=== PATIENT | female | born 1975 | race Hispanic/Latino ===

== ENCOUNTER 2019-11-12 01:36 | Emergency (ER) | payer OTHER ==
[~2019-11-12] VITALS: Ht 152.4 cm; Wt 68.9 kg
--- OUTSIDE RECORDS SUMMARY | 2019-11-12 01:38 | XMS REPORT ---
Author Author [facility] t Organization [facility] Address [address] [place] [address] Phone Unavailable Care Team Providers Care Neonatal Intensive Care Nurse Name Role Phone Unavailable Unavailable Problems This patient has no known problems. Allergies, Adverse Reactions, Alerts This patient has no known allergies or adverse reactions. Medications This patient has no known medications. Procedures This patient has no known procedures. Encounters Start Date/Time End Date/Time Encounter Type Admission Type [facility] Care Department Encounter ID Source 2018-10-02 21:42:00 2018-10-02 21:42:00 Emergency E [facility]SE [id number] [facility]SE Results Test Description Test Time Test Comments Results Result Comments Source SCR MAMM BILATERAL ROMERO CAD DIGITAL 2019-09-06 16:14:00 - SCR MAMM BILATERAL ROMERO CAD DIGITALBILATERAL DIGITAL SCREENING MAMMOGRAM 3D/2D WITH CAD: 09/06/2019CLINICAL: Asymptomatic. Digital breast tomosynthesis was performed in addition to routine CC and MLO views. Current mammographic images were evaluated by either a [employer] M-Vu or a [employer] ImageChecker CAD (computer aided detection system). Comparison is made to exams dated 06/30/2018 mammogram, 018 mammogram, and 06/09/2016 mammogram - [facility]. There are scattered fibroglandular tissues in both breasts. No suspicious mass, architectural distortion, malignant type calcification, or lymph node abnormality detected. Breast architecture is stable compared to prior exams.IMPRESSION: NEGATIVEThere is no mammographic evidence of malignancy. Resume annual screening mammography in one year. Emily house/darion:09/06/2019 16:14:00 Survey Operations Director: Jenn HUBER, [facility] sent: BIRADS 1-2 Normal Mammogram BI-RADS: 1 Negative SCR MAMM BILATERAL ROMERO CAD DIGITAL 2018-06-30 16:29:39 - SCR MAMM BILATERAL ROMERO CAD DIGITALBILATERAL DIGITAL SCREENING MAMMOGRAM 3D/2D WITH CAD: 06/30/2018CLINICAL: Asymptomatic. Digital breast tomosynthesis was performed in addition to routine CC and MLO views. Current mammographic images were evaluated by either a [employer] M-Vu or a [employer] ImageChecker CAD (computer aided detection system). Comparison is made to exams dated 06/29/2017 mammogram, 05/22 mammogram, and 06/05/2015 mammogram - [facility]. There are scattered fibroglandular tissues in both breasts. No suspicious mass, architectural distortion, malignant type calcification, or lymph node abnormality detected. Breast architecture is stable compared to prior exams.IMPRESSION: NEGATIVEThere is no mammographic evidence of malignancy. Resume annual screening mammography in one year. Sanjuanita Burnett M.D. ar/penrad:06/30/2018 16:29:39 Survey Operations Director: Jenn Bryant , [facility] sent: BIRADS 1-2 Normal Mammogram BI-RADS: 1 Negative
--- OUTSIDE RECORDS SUMMARY | 2019-11-12 01:38 | XMS REPORT ---
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 Active Joe Loredo MD Special investigations and examinations - Gynecological examination Cervix, screening for malignant neoplasm V76.2 Active Joe Loredo MD Screening for malignant neoplasms of the cervix Hot flashes 627.2 Active Joe Loredo MD Symptomatic menopausal or female climacteric states Human papilloma virus test positive 795.05 Active Joe Loredo MD Cervical high risk human papillomavirus (HPV) DNA test positive Oligomenorrhea 626.1 Active Joe Loredo MD Scanty or infrequent menstruation Vaginal discharge 623.5 Active Joe Loredo MD Leukorrhea, not specified as infective Medication List Medication Instructions Start Date Stop Date Generic Name NDC Status Provider Patient Instruction No Drug Therapy Prescribed - none known did ask Danielle Carrillo MA Vital Signs Date Name Value Unit Range Description blood pressure, diastolic 70 mm[Hg] BP ball blood pressure, systolic 110 mm[Hg] BP sys pulse rate E&M 68 /min Heart rate respiratory rate E&M 16 /min Resp rate temperature E&M 98.0 [degF] Body temp erature weight E&M 148 [lb_av] Weight Measure d Diagnostic Results Date Name Value Unit Range Description Lab Report: NuSwab Vaginitis Plus (VG+) - Lab chlamydia DNA probe Negative Negative Lab Report: Nuab Vaginitis Plus (VG+) - Microbiology Neisseria gonorrhoeae DNA probe Negative Nega tive Office Visit: Annual / Female -- Room 6 - Chemistry beta HCG, urine, semiquantitative negative Lab Report: Sumayaab Vaginitis Plus (VG+) - Urinalysis trichomonas vaginalis, urine Negative Negativ e Lab Report: FSH, Serum, TSH Rfx on Abnor mal to Free T4 - Chemistry thyroid stimulating hormone, serum 1.460 u[iU]/mL 0 .450-4.500 follicle stimulating hormone, serum 14.1 m[iU]/mL Procedures Code Procedure Name Date Entry Date Standard Desc ription CPT-39528 Est Patient Well Exam (40 - 64 Yrs) - [id number] 2017 12:29:57 CDT CPT-32142 New Patient Well Exam (40 - 64 Yrs) - [id number] 2016 15:22:23 CDT
[2019-11-12] MEDS ORDERED: ONDANSETRON HCL 4 MG ORAL DISINTEGRATING TAB PO ONE (02:00)
[2019-11-12] MEDS ORDERED: ZOFRAN4 MG SL (02:01)
--- NOTE | 2019-11-12 02:01 | Emergency Department Note ---
History of Present Illnes History of Present Illness Chief Complaint: General Medicine Complaints History of Present Illness This is a 44 year old female cc dizziness x 1 week. seen her md, now on meclizine. Historian: Patient Arrival Mode: Car Onset (how long ago): week(s) (1) Location: head Quality: dizzy Radiation: non-radiation, back, neck, extremity, abdomen, periumbilical, flank, proximal, distal, other Severity: mild Onset quality: gradual Duration (how long): week(s) (1) Timing of current episode: intermittent Progression: waxing and waning Chronicity: new Context: recent illness, recent surgery, recent immobilization, recent travel, trauma/injury, new medications, hx of DVT/PE, non-compliance w/ medications, other Relieving factors: none Exacerbating factors: none Associated symptoms: denies other symptoms Treatments prior to arrival: none Past Medical/Family History Physician Review I have reviewed the patient's past medical and family history. Any updates have been documented here. Past Medical History Past Medical History: None Past Surgical History: None Social History Smoking Cessation: Never Smoker Alcohol Use: Occasional Review of Systems Review of Systems Constitutional: no symptoms EENTM: no symptoms Cardiovascular: no symptoms Respiratory: no symptoms Gastrointestinal: no symptoms Genitourinary: no symptoms Musculoskeletal: no symptoms Neurological: as per HPI Psychological: no symptoms Endocrine: no symptoms Hematological/Lymphatic: no symptoms Review of other systems All other systems reviewed and negative. Physical Exam Related Data Vital signs reviewed: Yes Physical Exam CONSTITUTIONAL Constitutional: well-developed, well-nourished HENT HENT: normocephalic, atraumatic, oropharynx clear/moist, nose normal HENT L/R: left ext ear normal, right ext ear normal EYES Eyes: PERRL, conjunctivae normal NECK Neck: ROM normal PULMONARY Pulmonary: effort normal, breath sounds normal CARDIOVASCULAR Cardiovascular: regular rhythm, heart sounds normal, capillary refill normal, normal rate GASTROINTESTINAL Abdominal: soft, nontender, bowel sounds normal GENITOURINARY Genitourinary: exam deferred SKIN Skin: warm, dry MUSCULOSKELETAL Musculoskeletal: ROM normal NEUROLOGICAL Neurological: alert, oriented x 3, no gross motor or sensory deficits PSYCHOLOGICAL Psychological: mood/affect normal, judgement normal Results Imaging Imaging results reviewed: Yes Critical Care Time Subsequent provider I assumed direction of critical care for this patient from another provider of my specialty. Assessment & Plan Assessment & Plan Final Impression: (1) Dizziness Assessment & Plan add nic Escudero Disposition: HOME, SELF-CARE JOSELUIS LEE MD November 12, 2019 02:01
[2019-11-12] MEDS ORDERED: ONDANSETRON HCL 4 MG ORAL DISINTEGRATING TAB ONE (02:09)
[2019-11-12] MEDS ORDERED: PROMETHAZINE HC25 M1 PO (02:12)
[2019-11-12] MEDS ORDERED: PROMETHAZINE HCL (IM) 25 MG/ML VIAL IM ONE (02:15)
--- NOTE | 2019-11-12 02:39 | Diagnostic Imaging Report ---
History: Vertical Comparison studies: None Technique: Axial images were obtained from the skull base to the vertex. Coronal and sagittal reconstructions obtained from the axial data. Dose modulation, iterative reconstruction, and/or weight based adjustment of the mA/kV was utilized to reduce the radiation dose to as low as reasonably achievable. Findings: Scalp/skull: No abnormalities. No fractures, blastic or lytic lesions. Extra-axial spaces: No masses. No fluid collections. Brain sulci: Appropriate for age. Ventricles: Normal in size and configuration. No hydrocephalus. Parenchyma: No abnormal densities. No masses, hemorrhage, acute or chronic cortical vascular insults. Sellar/suprasellar region: No abnormalities Craniocervical junction: Patent foramen magnum. No Chiari one malformation. IMPRESSION: No abnormalities . Signed by: DR Valerio Em M.D. on 11/12/2019 2:35 AM
[2019-11-12 03:00] VITALS: BP 132/80
== END 2019-11-12 02:57 | disposition home or self-care (01) ==
LOC: FSED 01:36
DX: R42 Dizziness and giddiness (principal)
CPT/HCPCS: 70450; 96372; 99283; Q0162